=== PATIENT | female | born 1945 | race Caucasian/White ===

== ENCOUNTER 2018-04-30 06:52 | Day surgery (SDC) | payer OTHER ==
[~2018-04-30 06:52] MED LIST: METFORMIN HCL1000 MG; METFORMIN HCL500 MG PO; SYNTHROID125 MCG PO; [UNRECOGNIZED DRUG - OTHER] PO
[2018-04-30] MEDS ORDERED: KEFLEX250 MG PO (10:11)
[2018-04-30] MEDS ORDERED: ULTRACET PO (10:11)
== END 2018-04-30 12:35 | disposition home or self-care (01) ==
LOC: CIR.AMB 06:52
DX: N39.41 Urge incontinence (principal); N32.81 Overactive bladder; R35.0 Frequency of micturition
CPT/HCPCS: 64581; C1778

== ENCOUNTER 2018-05-07 05:50 | Day surgery (SDC) | payer OTHER ==
[~2018-05-07 05:50] MED LIST changes: +KEFLEX250 MG PO; +ULTRACET PO
== END 2018-05-07 13:40 | disposition home or self-care (01) ==
LOC: CIR.AMB 05:50
DX: N39.46 Mixed incontinence (principal); N32.81 Overactive bladder
CPT/HCPCS: 64590; C1767